=== PATIENT | male | born 1965 | race Caucasian/White ===

== ENCOUNTER 2016-08-12 11:28 | Observation (INO) | payer OTHER ==
[2016-08-12] MEDS ORDERED: NS 1,000 ML IV ONE ×2 (11:36→15:00)
[2016-08-12] MEDS ORDERED: DIAZEPAM 5 MG TAB PO ONE (11:36)
[2016-08-12] MEDS ORDERED: ASPIRIN EC 325 MG TAB PO ONE ×2 (11:36→12:30)
[2016-08-12] MEDS ORDERED: FAMOTIDINE 20 MG TAB PO ONE (11:36)
[2016-08-12] MEDS ORDERED: diphenhydrAMINE 25 MG CAP PO ONE ×2 (11:36→12:30)
--- NOTE | 2016-08-12 12:11 | CPEKG ---
Heart Rate: 61 RR Interval: 984 P-R Interval: 144 QRSD Interval: 108 QT Interval: 408 QTC Interval: 411 P [place]: 35 QRS [place]: 43 T Wave [place]: 25 EKG Severity - NORMAL ECG - EKG Impression: SINUS RHYTHM Electronically Signed By: Carina Stallings 12-Aug-2016 15:20:05
[2016-08-12 12:26] LABS: % IMMATURE GRANULYOCYTES 0.1 % (0.0-1.1); ABSOLUTE IMMATURE GRANULOCYTES 0.01 10^3/uL (0.00-0.10); ADD DIFF? NO; ADD MORPH? NO; ADD SCAN? NO; ATYPICAL LYMPHOCYTE FLAG 0 (0-99); FRAGMENT RBC FLAG 10 (0-99); HEMOGLOBIN 16.1 g/dL (13.7-17.5); LEFT SHIFT FLG 0 (0-99); LIPEMIA HEMOLYSIS FLAG 90 (0-99); MEAN CELL HEMOGLOBIN 30.4 pg (27.9-34.1); MEAN CELL HEMOGLOBIN CONCENTR. 34.3 g/dL (32.4-36.7); MEAN CELL VOLUME 88.8 fL (81.5-99.8); MEAN PLATELET VOLUME 9.7 fL (8.7-11.7); PLATELET CLUMPS FLAG 10 (0-99); PLATELET COUNT 230 10^3/uL (150-400); RED BLOOD CELL COUNT 5.29 10^6/uL (4.40-6.38)
[2016-08-12] MEDS ORDERED: FAMOTIDINE 20 MG TAB ONE (12:30)
[2016-08-12] MEDS ORDERED: DIAZEPAM 5 MG TAB ONE (12:30)
[2016-08-12] MEDS ORDERED: ASPIRIN EC 81 MG TAB PO ONE (12:33)
[2016-08-12 12:35] LABS: INR 1.01 (0.83-1.16); PROTIME(PATIENT) 13.2 SEC (12.0-15.0)
[2016-08-12 12:42] LABS: ANION GAP 12 mEq/L (8-16); CALCIUM 9.5 mg/dL (8.5-10.4); CARBON DIOXIDE 22 mEq/l (22-31); CHLORIDE 109 mEq/L (97-110); CHOLESTEROL 223 mg/dL (140-200); CHOLESTEROL/HDL RATIO 4.21 RATIO (1.00-4.97); CREATININE 0.9 mg/dL (0.7-1.3); GLOMERULAR FILTRATION RATE > 60; GLUCOSE 90 mg/dL (70-100); HIGH DENSITY LIPOPROTEIN 53 mg/dL (40-65); LDL/HDL RATIO 2.91 RATIO (1.00-3.64); LOW DENSITY LIPOPROTEIN 154 mg/dL (70-100); NON-HIGH DENSITY LIPOPROTEIN 170 mg/dL (90-129); POTASSIUM 4.4 mEq/L (3.5-5.2); SODIUM 143 mEq/L (134-144); TRIGLYCERIDE 84 mg/dL (40-150); VERY LOW DENSITY LIPOPROTEINS 16 mg/dL (8-25)
[2016-08-12] MEDS ORDERED: LIDOCAINE 1% 30 ML SDV ONE (12:57)
[2016-08-12] MEDS ORDERED: MIDAZOLAM 2 MG/2 ML VIAL ONE ×2 (12:57→13:30)
[2016-08-12] MEDS ORDERED: fentaNYL 100 MCG/2 ML INJ ONE (12:57)
[2016-08-12] MEDS ORDERED: IOPAMIDOL (ISOVUE-370) 150 ML BTL IV ONE (13:02)
[2016-08-12] MEDS ORDERED: ATROPINE SULFATE 1 MG/10 ML SYR ONE (14:04)
--- NOTE | 2016-08-12 14:14 | CPIP ---
[f rep st] INVASIVE CARDIAC PROCEDURE DATE OF PROCEDURE: 08/12/2016 PROCEDURE: 1. Left heart catheterization. 2. Left ventriculogram. 3. Left and right coronary arteriogram. INDICATIONS: The patient had a markedly abnormal stress test with ST-segment depression at relatively early amounts of exercise associated with chest discomfort at peak exercise. He has a history of dyslipidemia. He has a marked family history of premature coronary disease with multiple people younger than him having stents or myocardial infarctions. The patient has been getting ongoing chest discomfort with some exertion. COMPLICATIONS: None. CONDITION AT THE END OF THE STUDY: Excellent. FINDINGS: ANGIOGRAPHY: 1. Left main coronary artery is normal. 2. Left anterior descending artery is normal with no disease present. 3. Circumflex coronary artery is also normal with no disease present. 4. Right coronary artery is normal and dominant with no disease present. LEFT VENTRICULOGRAM: 1. Normal left ventricular chamber dimension. 2. Normal left ventricular systolic function. 3. Normal left ventricular ejection fraction. 4. No regional wall motion abnormalities. 5. Ejection fraction approximately 57%. LEFT HEART CATHETERIZATION: 1. The left ventricular end-diastolic pressure 10 mmHg. 2. No aortic stenosis. CONCLUSIONS: The patient is free of obstructive coronary artery disease at this point in time. Ongoing very aggressive primary prevention remains to be advocated, and I have talked to him about this extensively today. He will continue to work hard to have good cardiovascular health. All questions have been answered. He is still in and out of waking up at the end of this dictation but so far waking up and doing well. /[id number]/MODL MTDD
[2016-08-12] MEDS ORDERED: OXYCODONE/APAP 5/325 TAB PO PRN (14:53)
[2016-08-12] MEDS ORDERED: HYDROCODONE/APAP 5/325 TAB PO PRN (14:53)
[2016-08-12] MEDS ORDERED: NITROGLYCERIN 0.4 MG BTL SL PRN (14:53)
[2016-08-12] MEDS ORDERED: ATROPINE SULFATE 1 MG/10 ML SYR IVP PRN (14:53)
[2016-08-12] MEDS ORDERED: ONDANSETRON 4 MG/2 ML VIAL IVP PRN (14:53)
[2016-08-12 20:48] VITALS: BP 114/76; PULSE 75; RESP 17; TEMP 98.1; O2SAT 95
== END 2016-08-12 22:09 | disposition home or self-care (01) ==
LOC: FCATH 11:28 → F2W 17:17
PROVIDERS: ADMIT Internal Medicine; ATTEND Internal Medicine
PROC: 4A023N7 Measurement of Cardiac Sampling and Pressure, Left Heart, Percutaneous Approach (ICD-10-PCS; principal; 2016-08-12)
PROC: B2111ZZ Fluoroscopy of Multiple Coronary Arteries using Low Osmolar Contrast (ICD-10-PCS; principal; 2016-08-12)
PROC: B2151ZZ Fluoroscopy of Left Heart using Low Osmolar Contrast (ICD-10-PCS; principal; 2016-08-12)
DX: R07.9 Chest pain, unspecified (principal); F41.9 Anxiety disorder, unspecified; E78.5 Hyperlipidemia, unspecified; R93.1 Abnormal findings on diagnostic imaging of heart and coronary circulation; Z87.891 Personal history of nicotine dependence; Z82.49 Family history of ischemic heart disease and other diseases of the circulatory system
CPT/HCPCS: J0461; J1644; J2250; J3010; Q9967